=== PATIENT | female | born 1995 | race Caucasian/White ===

== ENCOUNTER 2022-04-18 15:06 | Emergency (ER) | payer OTHER, SELFPAY ==
--- NOTE | 2022-04-18 15:09 | ED.HEATRA ---
HPI - Head Injury General Chief complaint: Head Injury Stated complaint: head injury, possible concussion Time Seen by Provider: 04/18/22 15:09 Source: patient and RN notes reviewed History of Present Illness HPI Narrative: Patient is a 26-year-old female who presents the urgent care with complaints of possible concussion and headache. Patient states that she was at [employer] yesterday and went down a slide with her son on her lap and they both end up bashing the right side of their head on the slide. Patient states that her son lost a few teeth and had a bad laceration on his head. Patient states that this occurred on Monday and since then she has felt woozy . Patient has not vomited. States that she has been taking ibuprofen and Tylenol with good headache relief. Patient denies of any double vision, confusion or lethargy. States that she has been driving and living her daily life. Patient states that symptoms exacerbated after being on a 2-hour Zoom call for work. No other acute complaints. No acute distress noted. Patient aware of the plan of care. Some parts of this dictation were generated by voice recognition software and may contain typographical and/or grammatical inaccuracies. Related Data Home Medications Medication Instructions Recorded Confirmed desogestrel 0.15 mg-ethinyl 1 tablet PO DAILY 04/18/22 04/18/22 estradiol 0.03 mg tablet (Isibloom) Allergies Allergy/AdvReac Type Severity Reaction Status Date / Time No Known Allergies Allergy Verified 04/18/22 15:31 Review of Systems Review of Systems: CONSTITUTIONAL: Denies fever, chills, or sweats. Reports of fatigue EYES: Denies visual changes, redness, or discharge. ENT: Denies rhinorrhea, congestion, sore throat, or otalgia. CARDIOVASCULAR: Denies chest pain, palpitations, or edema. RESPIRATORY: Denies cough or dyspnea. GASTROINTESTINAL: Denies abdominal pain, nausea, vomiting, or diarrhea. GENITOURINARY: Denies dysuria or hematuria. SKIN: Denies rash or itching. MUSCULOSKELETAL: Denies back pain, joint pain, or myalgia. NEUROLOGIC: Reports of headache All other systems reviewed are negative, except as documented in HPI. PMFSH Comments At the time of my signature, I reviewed and agree with the nursing past medical, surgical, social, and family history. There is no relevant family history pertinent to the patient complaint. Exam Narrative: GENERAL: This is a well-nourished, well-developed patient, in no apparent distress. HEAD: normocephalic, atraumatic. 2 cm tender mildly edematous hematoma to the right temporal aspect EYES: PERRL. Sclera clear/white. Vision is grossly intact. EARS: External ears normal NOSE: External nose normal with no obvious nasal discharge, nares without redness, no rhinorrhea. THROAT: Mucous membranes moist NECK: Neck supple CARDIOVASCULAR: Regular rate and rhythm without murmurs, gallops, or rubs. RESPIRATORY: Clear to auscultation. Breath sounds equal bilaterally. No wheezes, rales, or rhonchi. SKIN: warm, intact with no suspicious lesions or rash, good texture and turgor. NEURO: awake, alert, and oriented to person, place and time. There were no obvious focal neurologic abnormalities. EXTREMITIES: No clubbing, cyanosis, or edema. Course Course Level of Care: Express Care Visit Vital Signs Vital signs: Vital Signs Temperature 98.2 F 04/18/22 15:22 Pulse Rate 99 04/18/22 15:22 Respiratory Rate 20 04/18/22 15:22 Blood Pressure 140/91 H 04/18/22 15:22 Pulse Oximetry 100 04/18/22 15:22 Temperature 98.2 F 04/18/22 15:22 Pulse Rate 99 04/18/22 15:22 Respiratory Rate 20 04/18/22 15:22 Blood Pressure 140/91 H 04/18/22 15:22 Pulse Oximetry 100 04/18/22 15:22 Reviewed-patient is informed that they may have pre-hypertension or hypertension based on a blood pressure reading in the department. I recommend the patient call the primary care provider listed on their discharge instructi
[2022-04-18 15:22] VITALS: BP 140/91; PULSE 99; RESP 20; TEMP 36.8; O2SAT 100
== END 2022-04-18 16:07 | disposition home or self-care (01) ==
PROVIDERS: Emergency Provider Nurse Practitioner Family
DX: F07.81 Postconcussional syndrome (principal)
CPT/HCPCS: 99203; G0463

== ENCOUNTER → 2023-12-01 13:39 | Outpatient (CLI) | payer OTHER, MEDICAID, SELFPAY ==
--- NOTE | ~2023-12-01 | US_ITS ---
EXAMINATION: US OB <=14 wk fetus w TV DATE: 12/01/2023 14:05 INDICATION: First trimester dating TECHNIQUE: Real-time pelvic transabdominal and transvaginal ultrasound was performed. COMPARISON: None. FINDINGS: The uterus measures 11.3 x 4.9 x 6.1 cm. There is an intrauterine gestational sac. A yolk s ac is identified. heart motion is identified measuring 145 beats per minute (bpm) by M-mode Dop pler. The crown rump length measures 12 mm, which correlates with an estimated gestational age of 7 weeks and 3 day(s) (+/-) 5 day(s). The right ovary measures 4.1 x 2.9 x 2.8 cm. The left ovary measures 4.7 x 2.9 x 3.4 cm. There is nor mal vascular flow in the ovaries. There is no free fluid in the pelvis. IMPRESSION: 1. Live intrauterine with an estimated gestational age of 7 weeks and 3 day(s) (+/-) 5 day( s) and an estimated delivery date of 07/16/2024. Reviewed, dictated and finalized at location F. [employer] HEAD IMPRESSION: 1. Live intrauterine with an estimated gestational age of 7 weeks and 3 day(s) (+/-) 5 day(s) and an estimated delivery date of 07/16/2024.
== END ==
PROVIDERS: PCP Student in an Organized Health Care Education/Training Program; Visit Provider Student in an Organized Health Care Education/Training Program
DX: N91.2 Amenorrhea, unspecified (principal); Z3A.01 Less than 8 weeks gestation of pregnancy
CPT/HCPCS: 76801; 76817

== ENCOUNTER 2024-01-12 09:01 | Outpatient (CLI) | payer OTHER, MEDICAID, SELFPAY ==
[2024-01-12 10:51] LABS: Alanine Aminotransferase 11 U/L (6-35); Alkaline Phosphatase 44 U/L (38-126); Anion Gap 6 mmol/L (8-16); Aspartate Amino Transferase 19 U/L (14-36); Bilirubin,Total 0.3 mg/dL (0.2-1.3); Blood Urea Nitrogen 11 mg/dL (7-17); Calcium 9.1 mg/dL (8.4-10.2); Carbon Dioxide 25 mmol/L (22-30); Chloride 103 mmol/L (98-107); Estimated Glomerular Filt Rate > 60; Glucose 195 mg/dL (65-110); Glucose 1 Hour PP 50gm Dose 196 mg/dL; Potassium 3.7 mmol/L (3.4-5.0); Sodium 134 mmol/L (137-145)
[2024-01-12 11:03] LABS: Creatinine Urine 197.4 mg/dL; Total Protein Urine Random 9 mg/dL
[2024-01-12 11:29] LABS: Hemoglobin A1C 5.3 % (<5.7)
[2024-01-12 15:27] LABS: Rapid Plasma Reagin Non-Reactive (NonReactive)
[2024-01-15 11:59] LABS: HIV 1 2 Ag Ab 4th Gen w Rflxs Nonreactive (Nonreactive)
== END 2024-01-12 09:02 | disposition home or self-care (01) ==
LOC: ANHLAB 09:03
PROVIDERS: PCP Student in an Organized Health Care Education/Training Program; Visit Provider Obstetrics & Gynecology
DX: N91.2 Amenorrhea, unspecified (principal); Z87.59 Personal history of other complications of pregnancy, childbirth and the puerperium; Z86.32 Personal history of gestational diabetes
CPT/HCPCS: 36415; 80053; 81050; 82570; 82947; 83036; 84156; 84443; 86592; 87086; 87088; 87389

== ENCOUNTER 2024-01-16 07:49 | Outpatient (CLI) | payer OTHER, MEDICAID, SELFPAY ==
[2024-01-16 07:11] LABS: Glucose Fasting Gestational 89 mg/dL (>/=95)
== END 2024-01-16 07:50 | disposition home or self-care (01) ==
LOC: ANHLAB 07:49
PROVIDERS: PCP Student in an Organized Health Care Education/Training Program; Visit Provider Obstetrics & Gynecology
DX: R73.09 Other abnormal glucose (principal)
CPT/HCPCS: 36415; 82951; 82952

== ENCOUNTER 2024-04-26 10:28 | Outpatient (CLI) | payer OTHER, SELFPAY ==
[2024-04-26 12:42] LABS: Basophils Percent Auto 0.3 % (0.2-1.2); Eosinophils Percent Auto 0.2 % (0-4.4); Hemoglobin 10.5 g/dL (12.0-15.0); Immature Granulocyte Absolute 0.05 K/mm3 (0.00-0.031); Immature Granulocyte Percent A 0.6 % (0-0.5); Immature Platelet Fraction Pct 12.7 % (0.9-11.2); Lymphocytes Absolute Auto 1.24 K/mm3 (0.9-3.2); Lymphocytes Percent Auto 14.2 % (18.3-44.2); Mean Corpuscular HGB Conc 31.8 g/dl (32-36); Mean Corpuscular Hemoglobin 29.4 pg (26-34); Mean Corpuscular Volume 92.4 fl (80-100); Monocytes Absolute Auto 0.4 K/mm3 (0.1-0.6); Monocytes Percent Auto 4.2 % (2.6-8.5); Neutrophils Percent Auto 80.5 % (45.5-73.1); Platelet Count Result 126 k/mm3 (150-375); Red Blood Count 3.57 M/mm3 (4.2-5.4); White Blood Count 8.8 K/mm3 (4.5-10.0)
[2024-04-26 12:59] LABS: Glucose 1 Hour PP 50gm Dose 180 mg/dL
[2024-04-26 14:26] LABS: HIV 1/2 Ab P24 Ag Result Negative (Negative)
[2024-04-26 17:02] LABS: Rapid Plasma Reagin Non-Reactive (NonReactive)
== END 2024-04-26 10:29 | disposition home or self-care (01) ==
LOC: ANHLAB 10:29
PROVIDERS: PCP Internal Medicine; Visit Provider Obstetrics & Gynecology
DX: Z34.90 Encounter for supervision of normal pregnancy, unspecified, unspecified trimester (principal)
CPT/HCPCS: 36415; 82947; 85025; 85055; 86592; 86703; G0432

== ENCOUNTER 2024-05-06 07:01 | Outpatient (CLI) | payer OTHER, SELFPAY ==
[2024-05-06 07:32] LABS: Glucose Fasting Gestational 87 mg/dL (>/=95)
== END 2024-05-06 07:02 | disposition home or self-care (01) ==
LOC: ANHLAB 07:03
PROVIDERS: PCP Internal Medicine; Visit Provider Obstetrics & Gynecology
DX: R73.09 Other abnormal glucose (principal)
CPT/HCPCS: 36415; 82951; 82952; 83036

== ENCOUNTER 2024-06-04 10:34 | Observation (INO) | payer OTHER, SELFPAY ==
[2024-06-04 10:54] VITALS: BP 107/74; PULSE 90
[2024-06-04 10:59] VITALS: BMI 35.2
[2024-06-04 11:00] VITALS: BP 104/67; PULSE 81
--- NOTE | 2024-06-04 11:00 | LDADM ---
This patient, Deborah Sandra, was admitted to OB Post 115 on 06/04/24 at 10:34. Plans for labor, pain management and were discussed with patient. Patient/family oriented to hospital policies and general routines including ID bracelet, bed and alarms, visiting hours, pain management, procedures, bathroom and other care routines, personal items, smoking policy, room service/diet and guest tray routines, security routines, and visiting hours. Patient/Family are encouraged to report perceived risks to care and to ask questions if they do not understand what they are told or what they should do. See OBIX for further documentation.
[2024-06-04 11:15] VITALS: BP 103/65; PULSE 77
[2024-06-04 11:30] VITALS: BP 107/63; PULSE 79
--- NOTE | 2024-06-04 12:03 | PC.NURSE ---
Patient presents to L&D with continuous abdominal pain she rates a 4/10 with intermittent increasing sharp pain she rates an 8/10. Patient states she called the exchange last night and was told to orally hydrate and take Tylenol for the pain. Patient states she drank water but did not take any pain medication. Patient states the pain is better today than last night but still persists. Placed patient on FHT monitor and obtained a tracing. Patient has no vaginal bleeding or any other symptoms. Patient was monitored for 45 minutes and she states she only felt the cramping abdominal pain once for 20 seconds. Patient's abdomen palpates soft and is nontender. Notified Dr. Moran at 1139 of patient's arrival, symptoms, and category I tracing. Received verbal orders to discharge patient to home with instructions to continue to hydrate and take her Tylenol. Patient agrees with plan of care and has no questions at this time.
--- NOTE | 2024-06-05 09:06 | PM.OBTRLD ---
OB - Triage/Final Diagnosis Visit Information Reason for evaluation: threatened labor Comments/Additional reasons for admission: I have assessed the risk for this patient, Deborah Guillermo Sandra, and determined that she would benefit from observation care. Evaluation Vital signs: Vital Signs - 24 hr 06/04/24 10:54 06/04/24 11:00 06/04/24 11:15 Pulse Rate 90 81 77 Blood Pressure 107/74 104/67 103/65 Oxygen Delivery 06/04/24 11:30 06/04/24 10:59 Pulse Rate 79 Blood Pressure 107/63 Oxygen Delivery Room Air
== END 2024-06-04 12:01 | disposition home or self-care (01) ==
PROVIDERS: Admitting Provider Obstetrics & Gynecology; PCP Internal Medicine; Visit Provider Obstetrics & Gynecology
DX: O47.03 False labor before 37 completed weeks of gestation, third trimester (principal); Z3A.34 34 weeks gestation of pregnancy
CPT/HCPCS: G0378; G0379

== ENCOUNTER 2024-06-12 15:12 | Outpatient (CLI) | payer OTHER, SELFPAY ==
--- NOTE | ~2024-06-12 | US_ITS ---
EXAMINATION: US OB follow up DATE: 06/12/2024 15:38 INDICATION: Encounter for supervision of normal . TECHNIQUE: Real-time ultrasound of the pelvis was performed. COMPARISON: Ultrasound 04/03/2024, 12/01/2023 FINDINGS: There is a single living fetus in vertex presentation. The placenta is posterior. heart rate i s 124 beats per minute (bpm). The amniotic fluid index is 9.8 cm, which is normal. The following biometric data were obtained: Biparietal diameter (BPD): 8.6 cm; head circumference (HC): 32.3 cm; abdominal circumference (AC): 31 .1 cm; femur length (FL): 7.0 cm. These measurements are concordant. Estimated weight is 2665 g +/- 400 g, which correlates with the 55th percentile when 07/16/24 is used as estimated date of delivery. As single measurements, these parameters are each equal to the following estimated gestational ages: BPD: 34 weeks 5 days. HC: 36 weeks 4 days. AC: 35 weeks 0 days. FL: 35 weeks 6 days. estimated gestational age based solely on measurements from this exam is 35 weeks 4 days +/- 2 weeks 3 days. IMPRESSION: 1. Single living fetus in vertex presentation. 2. Estimated weight is 2665 g +/- 400 g, which correlates with the 55th percentile when 07/16/24 is used as estimated date of delivery. This date was set by ultrasound on 12/01/2023. Reviewed, dictated and finalized at location A.
== END 2024-06-12 15:13 ==
LOC: MICIMG 15:13
PROVIDERS: PCP Student in an Organized Health Care Education/Training Program; Visit Provider Student in an Organized Health Care Education/Training Program
DX: Z34.90 Encounter for supervision of normal pregnancy, unspecified, unspecified trimester (principal)
CPT/HCPCS: 76816

== ENCOUNTER 2024-06-21 11:54 | Outpatient (CLI) | payer OTHER, SELFPAY ==
[2024-06-21 13:40] LABS: OBXCEM ROM Plus Negative
== END 2024-06-21 13:20 | disposition home or self-care (01) ==
LOC: ANHOBOP 13:33 → ANHLDR 13:35
PROVIDERS: Visit Provider Obstetrics & Gynecology
DX: O41.8X90 Other specified disorders of amniotic fluid and membranes, unspecified trimester, not applicable or unspecified (principal)
CPT/HCPCS: 59025; 84112; 99199

== ENCOUNTER 2024-07-05 11:15 | Outpatient (RCR) | payer OTHER, SELFPAY ==
[2024-07-05 12:08] VITALS: BP 108/76; PULSE 65
== END 2024-10-03 23:59 | disposition home or self-care (01) ==
LOC: ANHOBOP 11:15
PROVIDERS: Visit Provider Obstetrics & Gynecology
DX: O36.8130 Decreased fetal movements, third trimester, not applicable or unspecified (principal); Z3A.38 38 weeks gestation of pregnancy
CPT/HCPCS: 59025

== ENCOUNTER 2024-07-08 09:05 | Outpatient (CLI) | payer OTHER, SELFPAY ==
[2024-07-08 09:52] LABS: Basophils Percent Auto 0.2 % (0.2-1.2); Eosinophils Percent Auto 0.4 % (0-4.4); Hemoglobin 9.9 g/dL (12.0-15.0); Immature Granulocyte Absolute 0.07 K/mm3 (0.00-0.031); Immature Granulocyte Percent A 0.7 % (0-0.5); Lymphocytes Absolute Auto 1.78 K/mm3 (0.9-3.2); Lymphocytes Percent Auto 17.6 % (18.3-44.2); Mean Corpuscular HGB Conc 30.9 g/dl (32-36); Mean Corpuscular Hemoglobin 26.3 pg (26-34); Mean Corpuscular Volume 85.1 fl (80-100); Mean Platelet Volume 12.4 fl (7.4-10.4); Monocytes Absolute Auto 0.5 K/mm3 (0.1-0.6); Monocytes Percent Auto 4.9 % (2.6-8.5); Neutrophils Absolute Auto 7.7 K/mm3 (1.3-6.7); Neutrophils Percent Auto 76.2 % (45.5-73.1); Platelet Count Result 139 k/mm3 (150-375); Red Blood Count 3.76 M/mm3 (4.2-5.4); Red Cell Distribution Width 13.8 % (11.5-14.5); White Blood Count 10.1 K/mm3 (4.5-10.0)
[2024-07-08 10:47] LABS: HIV 1/2 Ab P24 Ag Result Negative (Negative)
[2024-07-08 11:37] LABS: Rapid Plasma Reagin Non-Reactive (NonReactive)
--- NOTE | 2024-07-08 16:28 | PM.IMHP ---
H&P: HPI History of Present Illness Date/Time: 07/08/24 16:28 28-year-old at 39 weeks gestation presents for repeat delivery. Her was complicated by abnormal 1hour test on the Glucola, she decided to be treated as gestational diabetic and her diet and Accu-Cheks have been normal. testing also normal. No other concerns or questions, records are on the chart as well as labs. Chief Complaint: Review of Systems Review of Systems: All systems reviewed & are unremarkable except as noted in HPI and below PMFSH Past Medical History Medical History (Updated 07/08/24 @ 16:31 by Vinod Moran MD) Gestational diabetes mellitus History of gestational diabetes Surgical History Surgical History Delivery by section 2016 - high blood pressure - baby large for size H/O gastric sleeve 10/2022 Hx of breast reduction, elective S/P tonsillectomy and adenoidectomy Family History Family History Mother Diabetes mellitus Hypertension Father Diabetes mellitus Father No problems noted. Grandparent Diabetes mellitus Heart disease Cancer Social History Social History Smoking status: Never smoker Alcohol intake: never Substance use: never Substance use type: does not use Lack of Transportation: No Lack of Food: Never True Current Housing: I Have Housing Concerned About Future Housing: No Difficulty Paying Gas/Electric Bills: No Difficulty Paying for Meds: No Currently Unemployed: No Education: Bachelor's Degree Difficulty w/ Childcare or Family Care: No Living arrangements: with family Occupation/Education: occupation Gender identity (if verbalized by the patient): Female Sexual Orientation (if Verbalized by the Patient): Straight or Heterosexual Meds Home Medications and Allergies Home Medications Medication Instructions Recorded Confirmed Type vits no.126-ferrous fum 1 tablet PO DAILY 01/26/24 07/08/24 History 28 mg iron-folic acid 800 mcg tablet (Classic ) Allergies Allergy/AdvReac Type Severity Reaction Status Date / Time No Known Allergies Allergy Verified 07/08/24 15:17 Exam Const: General: cooperative, healthy appearing and comfortable Resp: Effort & Inspection: normal respiratory effort Auscultation: clear to auscultation bilaterally Cardio: Rate: regular rate Rhythm: regular rhythm GI: Inspection: normal to inspection and incision GI Palp: No abdominal tenderness Auscultation: normal bowel sounds : External Female Exam: normal external appearance Bimanual exam- vagina & uterus: enlarged ( heart tone 140, fundal height 40cm) H&P: Results Labs Labs: Short CBC 07/08/24 Range/Units 09:38 WBC 10.1 H (4.5-10.0) K/mm3 Hgb 9.9 L (12.0-15.0) g/dL Hct 32.0 L (37.0-47.0) % Plt Count 139 L (150-375) k/mm3 Assessment and Plan Assessment and plan (1) 39 weeks gestation of : Code(s): Z3A.39 - 39 weeks gestation of Status: Acute (2) History of delivery: Code(s): Z98.891 - History of uterine scar from previous surgery Status: Acute (3) Gestational diabetes mellitus: Code(s): O24.419 - Gestational diabetes mellitus in , unspecified control Status: Acute Plan proceed with repeat low-transverse delivery
== END 2024-07-08 09:06 | disposition home or self-care (01) ==
LOC: ANHOBOP 09:16
PROVIDERS: Visit Provider Obstetrics & Gynecology
DX: Z01.818 Encounter for other preprocedural examination (principal); Z3A.39 39 weeks gestation of pregnancy; Z98.891 History of uterine scar from previous surgery
CPT/HCPCS: 36415; 85025; 86592; 86703; 86850; 86900; 86901; G0432

== ENCOUNTER 2024-07-09 05:28 | Inpatient (IN) | payer OTHER, SELFPAY ==
--- NOTE | 2024-07-08 16:28 | HP_ITS ---
This report was moved to the correct visit, [id number] on 07/18/2024. Original report was signed by Vinod Moran MD 07/08/2024 [id number]. H&P: HPI History of Present Illness Date/Time: 07/08/24 16:28 28-year-old at 39 weeks gestation presents for repeat delivery. Her was complicated by abnormal 1hour test on the Glucola, she decided to be treated as gestational diabetic and her diet and Accu-Cheks have been normal. testing also normal. No other concerns or questions, records are on the chart as well as labs. Chief Complaint: Review of Systems Review of Systems: All systems reviewed & are unremarkable except as noted in HPI and below PMFSH Past Medical History Medical History (Updated 07/08/24 @ 16:31 by Vinod Moran MD) Gestational diabetes mellitus History of gestational diabetes Surgical History Surgical History Delivery by section 2017 - high blood pressure - baby large for size H/O gastric sleeve 10/2022 Hx of breast reduction, elective S/P tonsillectomy and adenoidectomy Family History Family History Mother Diabetes mellitus Hypertension Father Diabetes mellitus Father No problems noted. Grandparent Diabetes mellitus Heart disease Cancer Social History Social History Smoking status: Never smoker Alcohol intake: never Substance use: never Substance use type: does not use Lack of Transportation: No Lack of Food: Never True Current Housing: I Have Housing Concerned About Future Housing: No Difficulty Paying Gas/Electric Bills: No Difficulty Paying for Meds: No Currently Unemployed: No Education: Bachelor's Degree Difficulty w/ Childcare or Family Care: No Living arrangements: with family Occupation/Education: occupation Gender identity (if verbalized by the patient): Female Sexual Orientation (if Verbalized by the Patient): Straight or Heterosexual Meds Home Medications and Allergies Home Medications Medication Instructions Recorded Confirmed Type vits no.126-ferrous fum 1 tablet PO DAILY 01/26/24 07/08/24 History 28 mg iron-folic acid 800 mcg tablet (Classic ) Allergies Allergy/AdvReac Type Severity Reaction Status Date / Time No Known Allergies Allergy Verified 07/08/24 15:17 Exam Const: General: cooperative, healthy appearing and comfortable Resp: Effort & Inspection: normal respiratory effort Auscultation: clear to auscultation bilaterally Cardio: Rate: regular rate Rhythm: regular rhythm GI: Inspection: normal to inspection and incision GI Palp: No abdominal tenderness Auscultation: normal bowel sounds : External Female Exam: normal external appearance Bimanual exam- vagina & uterus: enlarged ( heart tone 140, fundal height 40cm) H&P: Results Labs Labs: Short CBC 07/08/24 Range/Units 09:38 WBC 10.1 H (4.5-10.0) K/mm3 Hgb 9.9 L (12.0-15.0) g/dL Hct 32.0 L (37.0-47.0) % Plt Count 139 L (150-375) k/mm3 Assessment and Plan Assessment and plan (1) 39 weeks gestation of : Code(s): Z3A.39 - 39 weeks gestation of Status: Acute (2) History of delivery: Code(s): Z98.891 - History of uterine
[2024-07-09] VITALS (73 sets, daily range): BP systolic 85–121; BP diastolic 54–86; PULSE 51–93; RESP 13–18; TEMP 36.2–37.1; O2SAT 97–100; BMI 34.1
--- NOTE | 2024-07-09 05:44 | LDADM ---
This patient, Deborah Sandra, was admitted to Labor/Delivery/Recovery 120 on 07/09/24 at 05:28. Plans for labor, pain management and were discussed with patient. Patient/family oriented to hospital policies and general routines including ID bracelet, bed and alarms, visiting hours, pain management, procedures, bathroom and other care routines, personal items, smoking policy, room service/diet and guest tray routines, infant security routines, and visiting hours. Patient/Family are encouraged to report perceived risks to care and to ask questions if they do not understand what they are told or what they should do. See OBIX for further documentation.
[2024-07-09] MEDS: ACETAMINOPHEN 500 MG TABLET 1000 MG PO (06:08)
[2024-07-09] MEDS: LACTATED RINGERS 1,000 ML 125 ML IV CONT ×2 (06:21→07:11)
[2024-07-09] MEDS: ONDANSETRON INJ 4 MG/2 ML VIAL IV PUSH ×2 (07:11→19:37)
[2024-07-09] MEDS: FAMOTIDINE 20 MG/2 ML VIAL IV PUSH (07:11)
--- NOTE | 2024-07-09 07:11 | WPDHPUPDATE1 ---
History and Physical Update Update Date/Time: 07/09/24 07:11 History and Physical has been reviewed, including an updated exam of the patient. There are NO changes in the patient's condition. Risks, benefits, and alternatives have been discussed and questions answered. Patient agrees to proceed with procedure.
--- NOTE | 2024-07-09 07:12 | WPDANESEPPF ---
Anes - Initial Pre Proc Eval Procedure: Operation Date: 07/09/24 07:30 Proposed Procedures p Repeat Section - Vinod Moran MD Date/Time: 07/09/24 07:12 Surgeon: Vinod Moran MD Pre Op Diagnosis: C/S Patient Data Age: 28 Gender: F Height: 1.73 m Weight: 101.8 kg Last Vital Signs Pulse 89 07/09/24 06:30 BP 115/84 07/09/24 06:30 O2 Del Method Room Air 07/09/24 06:44 Allergies Allergy/AdvReac Type Severity Reaction Status Date / Time No Known Allergies Allergy Verified 07/08/24 15:17 Home Medications Medication Instructions Recorded Confirmed Type vits no.126-ferrous fum 1 tablet PO DAILY 01/26/24 07/08/24 History 28 mg iron-folic acid 800 mcg tablet (Classic ) Patient hx anesthesia problems: none Family hx anesthesia problems: none Results Review: All pre-operative results and documents have been reviewed as part of the pre-operative evaluation. [facility] Past Medical History Medical History Gestational diabetes mellitus History of gestational diabetes Surgical History Surgical History Delivery by section 2016 - high blood pressure - baby large for size H/O gastric sleeve 10/2022 Hx of breast reduction, elective S/P tonsillectomy and adenoidectomy Family History Family History Mother Diabetes mellitus Hypertension Father Diabetes mellitus Father No problems noted. Grandparent Diabetes mellitus Heart disease Cancer Social History Social History Smoking status: Never smoker Second hand tobacco smoke exposure: No Alcohol intake: never Substance use: never Substance use type: does not use Do You Feel Safe in your Home?: Yes Lack of Transportation: No Lack of Food: Never True Current Housing: I Have Housing Concerned About Future Housing: No Difficulty Paying Gas/Electric Bills: No Difficulty Paying for Meds: No Currently Unemployed: No Education: Bachelor's Degree Difficulty w/ Childcare or Family Care: No Living arrangements: with family Occupation/Education: occupation Gender identity (if verbalized by the patient): Female Sexual Orientation (if Verbalized by the Patient): Straight or Heterosexual Spiritual care concerns: No Anes - Eval Final PreProcedure Day of Procedure 07/09/24 07:12 Patient weight: overweight Heart: regular rate and rhythm Lungs: clear to auscultation Airway: Mallampati scale class II Neurological: alert and oriented Last oral intake: >/= 8 hours ASA classification: II Emergent: no Anesthetic plan: proceed Anesthesia type and monitoring: regional spinal and standard monitoring Results Review: All pre-operative results and documents have been reviewed as part of the pre-operative evaluation. Plts 139. Informed Consent: The patient's anesthetic plan and its attendant risks and benefits were discussed with the patient/family/POA. Questions were solicited and answers provided to the satisfaction of the patient/family/POA.
[2024-07-09] MEDS: ceFAZolin 2 GM/D5W 50 ML 2 GM/50 ML BAG IVPB (07:26)
[2024-07-09] MEDS: OXYTOCIN 30 UNITS/NS 500 ML 30 UNITS/500 ML BAG 125 UNITS IV CONT (09:08)
--- NOTE | 2024-07-09 09:24 | W.PM.OBCSD ---
OB - Delivery Note Procedure Delivery date: 07/09/24 Pre-op diagnosis: Previous Delivery Post-op Diagnosis: Same Procedure Performed: Repeat Secondary branch: low cervical, transverse Surgeon: Vinod Moran MD Anesthesia type: Spinal Description of Procedure/Findings: patient prepped and draped usual manner for this procedure. Pfannenstiel incision was made and carried down to the fascia. Fascia was then extended bilaterally the length of the skin incision. Superiorly and inferiorly were dissected away from the rectus muscles, peritoneum was readily entered without difficulty. Bladder flap was developed lower segment was incised extended the length of the lower segment. Vertex was delivered without difficulty, nuchal cord was noted and reduced, rest baby was delivered without difficulty. Cord clamped cut and placenta was removed manually. Uterus was exteriorized cleared of membranes and clots and then approximated using 0 Monocryl in a running interlocking manner with good approximation and hemostasis noted. Uterine incision was hemostatic and well approximated, and uterus was returned to the abdomen. Gutters were cleared of sirs things fluids and clots and the incision was again and noted to be hemostatic. Fascia was approximated 0 Vicryl from left angle midline and the right angle midline with good approximation noted. Subcutaneous tissue was then approximated 0 plain suture and dinora were used to approximate the skin. Patient was then sent to recovery room in stable condition. Specimen: No Estimated Blood Loss: 400 Drains: Yes ( Zuniga) Packing: No Pathology: None sent Complications: No immediate complications Condition: Stable Disposition: PACU Baby Gestational Age by Date: 39 gender: Female presentation: vertex Placenta delivery description: Manual Removal Cord Vessel Description: 3 Vessels, Nuchal Cord and Reduced
[2024-07-09] MEDS: LIDOCAINE 5% PATCH 1 PATCH TRANSDERM (09:37)
[2024-07-09] MEDS: ACETAMINOPHEN 325 MG TABLET 650 MG PO ×2 (12:22→19:38)
[2024-07-09] MEDS: KETOROLAC 15 MG/ML VIAL (*BKC) IV PUSH ×2 (12:23→19:37)
--- NOTE | 2024-07-09 13:13 | OBPPTRN ---
1106 Patient transferred to post room #281 via stretcher. Support person present. Oriented to unit, room, information board, rooming in, admission packet and security measures. Patient verbalizes understanding.
[2024-07-09] MEDS: DEXTROSE 5%/0.45% SOD CHL 1,000 ML 125 ML IV CONT (13:33)
[2024-07-09] MEDS: POLYSACCHARIDE IRON COMPLEX 150 MG CAPSULE PO (16:47)
[2024-07-09] MEDS: DOCUSATE SODIUM 100 MG CAPSULE PO (16:47)
[2024-07-09] MEDS: SIMETHICONE 80 MG TAB.CHEW PO (16:48)
[2024-07-10] MEDS: ACETAMINOPHEN 325 MG TABLET 650 MG PO ×4 (00:59→21:09)
[2024-07-10] MEDS: KETOROLAC 15 MG/ML VIAL (*BKC) IV PUSH ×2 (01:00→07:58)
[2024-07-10 04:30] VITALS: BP 103/71; PULSE 68; RESP 18; TEMP 36.5; O2SAT 100
[2024-07-10 05:27] LABS: Basophils Percent Auto 0.4 % (0.2-1.2); Eosinophils Absolute Auto 0.1 K/mm3 (0-0.3); Eosinophils Percent Auto 0.6 % (0-4.4); Hematocrit 25.9 % (37.0-47.0); Hemoglobin 8.1 g/dL (12.0-15.0); Immature Granulocyte Absolute 0.07 K/mm3 (0.00-0.031); Immature Granulocyte Percent A 0.6 % (0-0.5); Lymphocytes Absolute Auto 2.97 K/mm3 (0.9-3.2); Lymphocytes Percent Auto 26.6 % (18.3-44.2); Mean Corpuscular HGB Conc 31.3 g/dl (32-36); Mean Corpuscular Hemoglobin 26.5 pg (26-34); Mean Corpuscular Volume 84.6 fl (80-100); Mean Platelet Volume 12.7 fl (7.4-10.4); Monocytes Absolute Auto 0.6 K/mm3 (0.1-0.6); Monocytes Percent Auto 5.6 % (2.6-8.5); Neutrophils Absolute Auto 7.4 K/mm3 (1.3-6.7); Neutrophils Percent Auto 66.2 % (45.5-73.1); Platelet Count Result 116 k/mm3 (150-375); Red Blood Count 3.06 M/mm3 (4.2-5.4); Red Cell Distribution Width 13.9 % (11.5-14.5); White Blood Count 11.2 K/mm3 (4.5-10.0)
--- NOTE | 2024-07-10 07:44 | WPDANLDPN2 ---
Anes-Prog Note L&D Date/Time: 07/10/24 07:44 Comfortable throughout: section Neuraxial method: spinal Epidural/Spinal procedure site: tender Neuro status: Neuro function grossly intact. Cardiovascular status: normal Respiratory status: normal Airway patency: baseline Mental status: baseline Post-Op hydration status: normal Vital Signs: Last Vital Signs Temp 36.5 C 07/10/24 04:30 Pulse 68 07/10/24 04:30 Resp 18 07/10/24 04:30 BP 103/71 07/10/24 04:30 Pulse Ox 100 07/10/24 04:30 O2 Del Method Room Air 07/10/24 04:30 Pain score (VAS): 4/10 I/O: Intake & Output 07/09/24 07/09/24 07/10/24 15:59 23:59 07:59 Intake Total 740 200 Output Total 400 7385 403 Balance -400 -0750 -500 Post-procedural complaints: pruritis moderate, treatment effective Patient feedback: Patient satisfied with anesthetic care.
--- NOTE | 2024-07-10 07:44 | WPDANLDNPN2 ---
Anes-Prog Note L&D-Neuraxial Date/Time: 07/10/24 07:44 Neuraxial medications: intrathecal PF morphine Opiod-related complaints: pruritis moderate, treatment effective Patient feedback: Patient satisfied with post-operative pain management.
[2024-07-10] MEDS: POLYSACCHARIDE IRON COMPLEX 150 MG CAPSULE PO ×2 (07:59→17:44)
[2024-07-10 08:10] VITALS: BP 105/75; PULSE 75; RESP 18; TEMP 36.6; O2SAT 100
[2024-07-10] MEDS: LIDOCAINE 5% PATCH 1 PATCH TRANSDERM (12:16)
[2024-07-10] MEDS: SIMETHICONE 80 MG TAB.CHEW PO (15:29)
[2024-07-10] MEDS: IBUPROFEN 600 MG TABLET PO ×2 (15:30→21:09)
[2024-07-10 20:40] VITALS: BP 113/76; PULSE 78; RESP 18; TEMP 36.8; O2SAT 100
[2024-07-11] MEDS: IBUPROFEN 600 MG TABLET PO (05:50)
[2024-07-11] MEDS: ACETAMINOPHEN 325 MG TABLET 650 MG PO (05:50)
[2024-07-11 08:15] VITALS: BP 106/72; PULSE 81; RESP 16; TEMP 36.7; O2SAT 100
[2024-07-11] MEDS: MULTIVIT/MIN/PREN/FOL AC/IRON TABLET 1 TAB PO (08:25)
[2024-07-11] MEDS: DOCUSATE SODIUM 100 MG CAPSULE PO (08:25)
[2024-07-11] MEDS: POLYSACCHARIDE IRON COMPLEX 150 MG CAPSULE PO (08:25)
[2024-07-11] MEDS: SIMETHICONE 80 MG TAB.CHEW PO (08:26)
[2024-07-11] MEDS: TETANUS,DIPHTHERIA,AC PERTUSSIS ADULT (0.5 ML) BOOSTRIX IM (08:26)
--- NOTE | 2024-07-11 09:24 | PC.NURSE ---
Patient viewed the discharge video Mother & Baby Care, The First Two Weeks . Patient was given the opportunity and encouraged to ask questions. Patient verbalized understanding of information shared and has been given the mother/baby guide for home reference.
--- NOTE | 2024-07-11 10:11 | PM.OBDSVD ---
DS: Admitting Diagnosis Discharge Date 07/11/2024 Admitting Diagnosis DS: Discharge Diagnosis Discharge Diagnosis (1) , delivered: Code(s): O80 - Encounter for full-term uncomplicated delivery Status: Acute OB - DS: Summary OB Procedures : None OB Procedures Intrapartum: OB Procedures: : None Peripartum Data Procedures: Procedures Operation Date: 07/09/24 07:30 Actual Procedure Side Surgeon p Section Vinod Moran MD Time Spent with Patient Time attestation: Total time spent providing and/or coordinating discharge services: Discharge Plan Discharge Discharging Clinician: Vinod Moran Patient Disposition: Home, Self-Care Activity: as tolerated Diet: as tolerated Wound Care Instructions: incision open to air Discharge Instructions: dinora out in office next monday Patient Instructions: Antibiotic Form Stand Alone Forms: General Discharge Information Follow-up/Referrals: Vinod Moran MD [Physician] - 3 Weeks Discharge Medications: New hydrocodone-acetaminophen 5-325 mg Tablet 1 tablet PO Q3H PRN (Reason: Breakthrough Pain Rated 4-6) Qty: 30 0RF Continued Classic 28 mg iron- 800 mcg tablet 1 tablet PO DAILY Date of admission: 07/09/24 05:28 Primary Care Provider: UNKNOWN,DOCTOR Admitting Provider: Vinod Moran Attending physician on admission: Vinod Moran Condition: Stable
[2024-07-12 12:58] VITALS: BP 117/79; PULSE 81; RESP 18; TEMP 37; O2SAT 99
== END 2024-07-11 11:25 | disposition home or self-care (01) | DRG 788 ==
LOC: ANHLDR 05:32 → ANHOB2 11:08
PROVIDERS: Admitting Provider Obstetrics & Gynecology; Visit Provider Obstetrics & Gynecology
PROC: 10D00Z1 Extraction of Products of Conception, Low, Open Approach (ICD-10-PCS; CPT 59514; principal; 2024-07-09 07:30)
DX: O69.81X0 Labor and delivery complicated by cord around neck, without compression, not applicable or unspecified (principal); O34.211 Maternal care for low transverse scar from previous cesarean delivery; Z37.0 Single live birth; Z3A.39 39 weeks gestation of pregnancy
CPT/HCPCS: 36415; 85025; 86592; 86703; 86850; 86900; 86901; 90715; A9270; G0432; J0690; J1596; J1885; J2274; J2371; J2405; J2590; J7120

== ENCOUNTER 2025-10-31 09:26 | Outpatient (CLI) | payer OTHER, SELFPAY ==
--- OUTSIDE RECORDS SUMMARY | 2025-10-31 09:44 | XMS_ITS | Clinical Summary ---
Author Organization [facility] Address [address] [place] [address] Care Team Providers Care Sales Representative Supervisor Name Role Phone Unavailable Primary Care Provider Unavailabl e Source Comments [facility],non-[facility] Affiliates and Associated Physician Practices is amultiple site organization consisting of ambulatory clinics and hospital sitesin [place], [place], [place] and [place]. This disclosure is being madepursuant to the Care Everywhere program and may not contain all information available regarding this patient. Last updated 18.[facility] [employer] Social History Tobacco Use Types Packs/Day Years Used Date Smoking Tobacco: Never Assessed Comments Unknown Sex and Gender Information Value Date Recorded Sex Assigned at Not on file Legal Sex Female 1:49 PM CDT Gender Identity Not on file Sexual Orientation Not on file Plan of Treatment Health Maintenance Due Date Last Done Comments HIV SCREENING 2011 HEPATITIS C SCREENING 11/14/2014 DTAP/TDAP/TD VACCINES (1 - Tdap) 2015 HEPATITIS B VACCINE (1 of 3 - 19+ 3-dose series) 2015 PAP SMEAR 2017 HPV VACCINE (1 - 3-dose SCDM series) 2023 DEPRESSION SCREENING 11/13/2024 COVID-19 VACCINE ( - 2024-2 6 season) 2025 INFLUENZA VACCINE (#1) 2025 ZOSTER VACCINE (1 of 2) 2046 HIB VACCINE Aged Out No longer eligi ble based on patient's age to complete this topic MENINGOCOCCAL (Group B) VACC INE SHARED DECISION-MAKING Aged Out No longer eligibl e based on patient's age to complete this topic MENINGOCOCCAL GROUPS A/C/Y/W VACCINE Aged Out No longer eligible b ased on patient's age to complete this topic PNEUMOCOCCAL VACCINE Aged Out No long er eligible based on patient's age [place] [id number]
--- OUTSIDE RECORDS SUMMARY | 2025-10-31 09:44 | XMS_ITS | Clinical Summary ---
Author Organization [facility] Address [address] [place] [id number] Phone Care Team Providers Care Funeral Planner Name Role Phone Astrid Chong MD Primary Care Provider [phone] Allergies No known active allergies Medications Isibloom 0.15-0.03 mg per tabletIndicatio ns:Menorrhagia with irregular cycle TAKE 1 TABLET BY MOUTH DAILY 84 tablet 3 Active ondansetron (Zofran) 4 mg tabletIndicatio ns:Gastroenteri tis Take 1 tablet (4 mg total) by mouth every 8 (eight) hours as needed for nausea 20 tablet 3 Active meclizine (ANTIVERT) 25 mg tablet Take 1 tablet (25 mg total) by mouth 3 (three) times a day as needed for dizziness 30 tablet 3 Active Active Problems Problem Noted Date Diagnosed Date Menorrhagia with irregular cycle 08/27/2019 Assessment & Plan (08/27/2019 9:34 AM CDT): Does not smoke, no history of DVT or Pe. Has used ortho-cept in past; would like to resume. Discussed Monday start. Reviewed medication side effects & scheduling. Reviewed need to take at same time every day; decreased effectiveness with taking antibiotics. To use condom for 1st month. Back up method when taking antibiotics. Reviewed red flags. Labs ordered; will contact w/results once rec'd. Discussed iron rich foods: Has not yet started iron supplements. Aware that supplements may cause constipation. To start daily for 4-5 days & then increase to bid. Aware that stool softeners may be needed. Iron rich foods: cream of wheat, organ meats (kidney, liver), prune juice, spinach. Beans/peas, bran cereal, almonds, beef, ham, pork, prunes, scallops, turkey. Encounter for screening for lipoid disorders Assessment & Plan (08/27/2019 9:34 AM CDT): Lipid panel ordered; will call w/results when received. Reviewed diet/exercise recommendations. BMI 35.0-35.9,adult 08/27/2019 Assessment & Plan (08/27/2019 9:34 AM CDT): Reviewed need to lose weight, reviewed health benefits. Reviewed recommendations for daily intake & activity 20-30 minutes/day. Discussed healthy diet and importance of regular physical activity. Need for influenza vaccination 08/27/2019 Assessment & Plan (08/27/2019 9:32 AM CDT): Flu vaccine given today. Discussed possible tenderness/redness at injection site. 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 Acute low back pain 09/15/2016 Overview (02/16/2017): Acute midline low back pain without sciatica Anxiety 09/15/2016 Overview (02/16/2017): Anxiety Stress 09/15/2016 Overview (02/16/2017): Stress No pathologic diagnosis 12/25/2013 Overview (02/15/2017): No diagnosis Resolved Problems Problem Noted Date Diagnosed Date Resolved Date Morbid obesity with body mas s index (BMI) of 40.0 to 44.9 in adult 08/24/2018 05/06/2020 Immunizations Immunization Administration Dates Next Due Hep A, Pediatric 05/15/2014 Influenza, Quadrivalent, Spl it, Preservative Free, Intramuscular 08/27/2019 Influenza, Unspecified 10/31/2022(Deferr ed: Patient Refused),08/13/2021(Deferred: Patient Refused),07/14/2021(Deferred: Patient Refused),11/13/2019(Deferred: Patient Refused),08/27/2019(Deferred: Patient Refused),11/13/2018(Deferred: Patient Refused),08/24/2018(Deferred: Patient Refused),08/24/2018(Deferred: Patient Refused),08/24/2018(Deferred: Patient Refused),11/13/2017(Deferred: Patient Refused),11/13/2017(Deferred: Patient Refused) PPD TEST 01/21/2019 Surgical History Surgery Date Site/Laterality Comments OTHER SURGICAL HISTORY Ovarian cyst: oral contraception EAR SURGERY 11/13/2006 - 11/12/2007 Ear surgery EAR SURGERY ear surgery OTHER SURGICAL HISTORY 11/13/2012 - 11/12/2013 Perforated ear drum: repair of perforated TM TONSILLECTOMY 11/13/2012 - 11/12/2013 tonsillectomy REDUCTION MAMMAPLASTY 12/13/2018 Bilateral Medical History Medical History Date Comments Cyst of ovary Ovarian cyst Hx Other Medical Factor VII defi ciency Hx Other Medical Perforated ear drum; Laterality: right Family History Medical History Relation Name Comments Diabetes Father Diabetes Maternal Grandmother Diabete s mellitus; Heart disease Maternal Grandmother Heart disease; Hypertension Maternal Grandmother Hyperte nsion; Hypertension Mother Heart disease Other Family history of heart problems; Relation Name Status Comments Father Alive Maternal Grandmother Mother Alive Other Social History Tobacco Use Types Packs/Day Years Used Date Smoking Tobacco: Never Smokeless Tobacco: Never Alcohol Use Standard Drinks/Week Comments No 0 (1 standard drink = 0.6 oz pur e alcohol) PHQ-2 Answer Date Recorded PHQ-2 Total Score (If total score is 3 or more points, staff should administer the PHQ-9) 0 10/31/2022 Personal Safety Answer Date Recorded Have you ever been in or are you currently in a harmful physical or emotional relationship or is someone making you feel afraid or unsafe? Denies 06/11/2025 Comments No Sex and Gender Information Value Date Recorded Sex Assigned at Not on file Legal Sex Female 2:48 AM [facility]ILI Gender Identity Not on file Sexual Orientation Not on file Last Filed Vital Signs Vital Sign Reading Time Taken Comments Blood Pressure 109/77 06/11/2025 11:15 PM CDT Pulse 75 06/11/2025 11:15 PM CDT Temperature 36.9 C (98.4 F) 06/11/2025 8:33 PM CDT Respiratory Rate 14 06/11/2025 8:33 PM CDT Oxygen Saturation 98% 06/11/2025 11:15 PM CDT Inhaled Oxygen Concentration - - Weight 95.3 kg (210 lb) 06/11/2025 8:33 PM CDT Height 172.7 cm (5' 7.99) 10/31/2022 2:47 PM CS T Body Mass Index 31.94 10/31/2022 2:47 PM [facility]I Plan of Treatment Health Maintenance Due Date Last Done Comments Cervical Cancer Screening 1996 Hepatitis C Screening 1996 DTaP/Tdap/Td Vaccine (5 - Tdap) 2007 05/10/2002, 12/09/1997, 05/21/1997, Additional history exists Regular Well Visit/Exam 18-64 05/23/2023 05/23/2022 Depression Screening 10/31/2023 10/31/2022, 05/23/2022, 07/13/2020, Additional history exists HPV Vaccines (1 - 3-dose SCDM series) 2023 Influenza Vaccine (#1) 2025 01/19/2023, 2018 Hepatitis B Screening Completed 05/10/2002 , 05/21/1997, 04/06/1997 Pneumococcal vaccine <65 Aged Out No longer eligible based on patient's age to complete this topic Varicella Vaccines Discontinued Insurance [facility] CHO[facility] PLUS [facility] PLUS Care Teams Funeral Planner Relationship Specialty Start Date End Date Astrid Chong MD [address] [place] [id number] PCP - General Internal Medicine 06/11/25
[2025-10-31 10:28] LABS: Hematocrit 36.2 % (37.0-47.0); Hemoglobin 11.2 g/dL (12.0-15.0); Mean Corpuscular HGB Conc 30.9 g/dl (32-36); Mean Corpuscular Hemoglobin 25.6 pg (26-34); Mean Corpuscular Volume 82.8 fl (80-100); Platelet Count Result 151 k/mm3 (150-375); Red Blood Count 4.37 M/mm3 (4.2-5.4); White Blood Count 6.1 K/mm3 (4.5-10.0)
[2025-10-31 11:17] LABS: Syphilis IgG/IgM Antibody Non-Reactive (Nonreactive)
[2025-10-31 11:21] LABS: Hepatitis B Surface Antigen Negative (Negative)
[2025-10-31 11:32] LABS: HIV 1/2 Ab P24 Ag Result Negative (Negative)
[2025-11-01 07:08] LABS: Varicella-Zoster Ab, IgG Reactive (Non Reactive)
[2025-11-01 07:08] LABS: Cytomegalovirus (CMV) Ab, IgG <0.60 U/mL (0.00-0.59)
[2025-11-04 13:08] LABS: Parvovirus B19, IgG 0.2 index (0.0-0.8); Parvovirus B19, IgM 0.1 index (0.0-0.8)
== END 2025-10-31 09:27 | disposition home or self-care (01) ==
LOC: ANHLAB 09:28
PROVIDERS: PCP Internal Medicine; Visit Provider Student in an Organized Health Care Education/Training Program
DX: Z34.90 Encounter for supervision of normal pregnancy, unspecified, unspecified trimester (principal)
CPT/HCPCS: 36415; 84702; 85027; 86593; 86644; 86703; 86747; 86762; 86787; 86850; 86900; 86901; 87077; 87086; 87186; 87340; G0432

== ENCOUNTER 2025-11-10 15:50 | Outpatient (CLI) | payer OTHER, SELFPAY ==
--- NOTE | ~2025-11-10 | US_ITS ---
EXAMINATION: US OB <= 14 weeks fetus DATE: 11/10/2025 16:06 INDICATION: Gestational dating and viability TECHNIQUE: Real-time transabdominal and transvaginal obstetric ultrasound. FINDINGS: No prior studies for comparison. The uterus measures 10.3 x 6.6 x 6.3 cm. There is an intrauterine gestational sac, with pole identified. The crown rump length measures 2.44 cm, which correlates with a estimated gestational age of 9 weeks 1 day. heart tones are identified measuring 172 bpm. The ovaries are within normal limits. Right ovary measures 3.6 x 2.2 x 2.3 cm. Left ovary measures 4.1 x 3.5 x 2.7 cm. IMPRESSION: 1. SL IUP with an EGA of 9 weeks, 1 days (EDC by current ultrasound of 06/14/2026). Reviewed, dictated and finalized at location O. [employer] IMPRESSION: 1. SL IUP with an EGA of 9 weeks, 1 days (EDC by current ultrasound of 06/14/20).
== END 2025-11-10 15:51 | disposition home or self-care (01) ==
LOC: MICIMG 15:51
PROVIDERS: PCP Student in an Organized Health Care Education/Training Program; Visit Provider Student in an Organized Health Care Education/Training Program
DX: N91.2 Amenorrhea, unspecified (principal)
CPT/HCPCS: 76801